=== PATIENT | male | born 1990 | race Two or more races ===

== ENCOUNTER 2017-02-16 16:45 | Inpatient (IN) | payer OTHER ==
[~2017-02-16] VITALS: Ht 162.6 cm; Wt 85.3 kg
--- NOTE | 2017-02-16 16:47 | NUR ---
NEREYDA AYERS FOR SEIZURE AURA, UNABLE TO TAKE HIS SZ MED TODAY. PT IS DIZZY, NAUSEOUS. PT STS HE TAKES KEPPRA 1500 BID. PT IS ALSO COMPLAINING OF CHEST PAIN X 1 HR. NAD VSS RR EVEN AND UNLABORED. SKIN IS WARM AND NON DIAPHORETIC. PENDING ER MD EVALUATION
[2017-02-16] MEDS ORDERED: LEVETIRACETAM (250 MG) 250 MG TABLET PO ONE ×2 (16:58→17:00)
--- NOTE | 2017-02-16 17:00 | NUR ---
EKG IN PROGRESS AT BEDSIDE
--- NOTE | 2017-02-16 18:33 | NUR ---
TRANSFERRED TO ED BED 05
--- NOTE | 2017-02-16 18:37 | NUR ---
PT TO CT SCAN
[2017-02-16 18:43] LABS: BASOPHILS # (AUTO) 0.1 /CMM (0.0-0.2); BASOPHILS % (AUTO) 1.4 % (0.0-2.0); EOSINOPHILS # (AUTO) 0.1 /CMM (0.0-0.7); EOSINOPHILS % (AUTO) 0.7 % (0.0-6.0); HEMATOCRIT 52 % (39-51); HEMOGLOBIN 18.1 g/dL (13.5-17.5); LYMPHOCYTES # (AUTO) 2.5 /CMM (0.8-4.8); LYMPHOCYTES % (AUTO) 23.9 % (20.0-44.0); MEAN CORPUSCULAR HEMOGLOBIN 30 PG (26.0-33.0); MEAN CORPUSCULAR HGB CONC 35 g/dl (31.0-36.0); MEAN CORPUSCULAR VOLUME 86 fL (80-96); MONOCYTES # (AUTO) 0.6 /CMM (0.1-1.30); MONOCYTES % (AUTO) 6.2 % (2.0-12.0); NEUTROPHILS # (AUTO) 7.1 /CMM (1.8-8.9); NEUTROPHILS % (AUTO) 67.8 % (43.0-81.0); PLATELET COUNT (AUTO) 344 /CMM (150-450); RDW COEFFICIENT OF VARIATION 12.1 (11.5-15.0); RED BLOOD CELL COUNT(AUTO) 6.13 MIL/uL (4.5-6.0); WHITE BLOOD COUNT (AUTO) 10.4 K/uL (4.3-11.0)
[2017-02-16 18:52] LABS: CALCIUM, SERUM 9.9 mg/dL (8.5-10.1); CREATININE 0.9 mg/dL (0.6-1.3)
--- NOTE | 2017-02-16 18:54 | NUR ---
PT BACK FROM CT SCAN
[2017-02-16 18:55] LABS: INR 0.93 (0.87-1.13); PROTHROMBIN TIME 9.7 SECS (9.5-12.7)
--- NOTE | 2017-02-16 18:55 | NUR ---
TELE STROKE MD WITH PATIENT AT THIS TIME VIA STROKE ROBOT
[2017-02-16 19:03] LABS: TROPONIN I 0.025 ng/mL (0.00-0.056)
[2017-02-16 19:06] LABS: ACETAMINOPHEN < 10 ug/ml (10-30); ALCOHOL, BLOOD < 3 mg/dL (0-0); SALICYLATE < 2.8 mg/dL (2.8-20.0)
[2017-02-16] MEDS ORDERED: LEVE500T9 PO (19:20)
[2017-02-16] MEDS ORDERED: IOHEXOL-350 100 ML VIAL IV ONE (19:37)
[2017-02-16] MEDS ORDERED: IV NS 0.9% 250 ML IV ONE (19:37)
[2017-02-16] MEDS ORDERED: ACETAMINOPHEN 325 MG TABLET ONE (19:54)
--- NOTE | 2017-02-16 19:57 | NUR ---
PT TO CTA SCAN IN CUSTODY
[2017-02-16 20:00] VITALS: BP 111/70
[2017-02-16] MEDS ORDERED: ACETAMINOPHEN 325 MG TABLET PO ONE (20:00)
--- NOTE | 2017-02-16 20:58 | NUR ---
GAVE REPORT TO ALEXANDREA IN [facility]
[2017-02-16 21:15] VITALS: BP 117/70
--- NOTE | 2017-02-16 22:00 | NUR ---
LOC[facility] TENENS PSYCHIATRIST NOTES PT ADMITTED TO TELE UNIT AT 2109 PT ARRIVED VIA GURNEY FROM E.R ACCOMPANIED BY ARMEN Johnson, PT AMBULATORY. PATIENT IS A/O X 4, NO NAUSEA NO VOMITING, NO COMPLAINS OF CHEST PAIN. APPEARS STABLE CONDITION, NO S/S OF DISTRESS. SAFETY MEASURES ARE IN PLACE, CALL LIGHT IS IN REACH. WILL CONTINUE TO MONITOR. TOLERATING ROOM AIR 98%, PT REFUSING TO REMOVE HIS PANTS AND REFUSE TO TAKE PICTURES OF HIS SKIN IF EVER HE HAS WOUNDS DESPITE RISKS AND BENEFITS MADE AWARE PER PT HE DOESNT HAVE WOUNDS.
[2017-02-16] MEDS ORDERED: ACETAMINOPHEN 325 MG TABLET PO PRN (23:00)
[2017-02-16] MEDS ORDERED: ONDANSETRON HCL/PF 4 MG/2 ML VIAL IVP PRN (23:00)
[2017-02-16] MEDS ORDERED: LORAZEPAM INJ 2 MG/ML VIAL IVP PRN (23:00)
--- NOTE | 2017-02-16 23:14 | NUR ---
PAGED DR. TYRELL AGUILAR SPOKE TO HER FOR CLARIFICATION OF ORDERS OF ACCUCHECK ACHS ONLY NOT EVERY 6 HOURS RELAYED PT COMPLAINS OF PAIN 8-10 DR. TYRELL Mcdaniel ORDERED MORPHINE 2 MG IV Q6 PRN NOTED AND CARRIED OUT ALL ORDERS VERIFIED AND READ BACK.
[2017-02-16] MEDS ORDERED: MORPHINE SULFATE INJ 4 MG/ML DISP.SYRIN ONE (23:23)
[2017-02-16] MEDS: MORPHINE SULFATE INJ 2 MG/ML DISP.SYRIN IV PRN (23:31)
[2017-02-17] VITALS: BP 115/70
[2017-02-17] MEDS ORDERED: BLOOD SUGAR DIAGNOSTIC 1 EACH STRIP IN SCH
[2017-02-17 01:30] LABS: THYROID STIMULATING HORMONE 6.504 uIU/mL (0.358-3.74)
[2017-02-17] MEDS: IV NS 0.9% 1,000 ML IV PRN ×2 (02:51→21:29)
[2017-02-17 04:00] VITALS: BP 101/58
[2017-02-17] MEDS ORDERED: MORPHINE SULFATE INJ 4 MG/ML DISP.SYRIN ONE (05:27)
[2017-02-17] MEDS: MORPHINE SULFATE INJ 2 MG/ML DISP.SYRIN IV PRN (05:39)
[2017-02-17] MEDS: BLOOD SUGAR DIAGNOSTIC 1 EACH STRIP IN SCH ×4 (06:15→21:01)
--- NOTE | 2017-02-17 06:42 | NUR ---
MS RN CLOSING NOTES ASLEEP AND EASILY AWAKEN, 2 MANAGER OF SELECTION AND ASSESSMENT AT BEDSIDE, PT ON CUSTODY. PT IN STABLE CONDITION. PT NOT IN PAIN AT THIS TIME. KEPT CLEAN AND DRY AND COMFORTABLE, ALL NURSING CARE RENDERED. NEEDS ATTENDED AND ANTICIPATED, FREQUENT VISUAL CHECK DONE FOR SAFETY EVERY 2 HOURS. ON LOW BED AT ALL TIMES TO ENSURE SAFETY. SAFE HAZARD FREE ENVIRONMENT PROVIDED. CALL LIGHT WITHIN EASY TO REACH. WILL ENDORSE NEXT SHIFT CONTINUITY OF CARE.
--- NOTE | 2017-02-17 07:30 | NUR ---
RN MS NOTES PT IN BED, AWAKE, ALERT AND ORIENTED, STILL WITH COMPLAINT OF PAIN AT THE HEAD AND RIGHT SIDE OF CHEST, PAIN MEDICATION GIVEN FOR PAIN MANAGEMENT, CALL LIGHT WITHIN REACH, PLAN OF CARE DISCUSSED WITH PT, VERBALIZED UNDERSTANDING, NEEDS ATTENDED.
[2017-02-17 07:41] LABS: BASOPHILS % (AUTO) 0.8 % (0.0-2.0); EOSINOPHILS # (AUTO) 0.2 /CMM (0.0-0.7); EOSINOPHILS % (AUTO) 4.2 % (0.0-6.0); HEMATOCRIT 45 % (39-51); HEMOGLOBIN 15.7 g/dL (13.5-17.5); LYMPHOCYTES # (AUTO) 2.3 /CMM (0.8-4.8); LYMPHOCYTES % (AUTO) 38.8 % (20.0-44.0); MEAN CORPUSCULAR HEMOGLOBIN 30 PG (26.0-33.0); MEAN CORPUSCULAR HGB CONC 35 g/dl (31.0-36.0); MEAN CORPUSCULAR VOLUME 87 fL (80-96); MONOCYTES # (AUTO) 0.6 /CMM (0.1-1.30); MONOCYTES % (AUTO) 10.7 % (2.0-12.0); NEUTROPHILS # (AUTO) 2.7 /CMM (1.8-8.9); NEUTROPHILS % (AUTO) 45.5 % (43.0-81.0); PLATELET COUNT (AUTO) 286 /CMM (150-450); RDW COEFFICIENT OF VARIATION 12.8 (11.5-15.0)
[2017-02-17 08:00] VITALS: BP 110/67
[2017-02-17 08:05] LABS: INR 0.97 (0.87-1.13); PROTHROMBIN TIME 10.1 SECS (9.5-12.7)
[2017-02-17 08:13] LABS: ALBUMIN 3.7 g/dL (3.4-5.0); BILIRUBIN,DIRECT 0.2 mg/dL (0.0-0.2); BILIRUBIN,TOTAL 0.9 mg/dL (0.2-1.0); CALCIUM, SERUM 8.7 mg/dL (8.5-10.1); CREATININE 0.9 mg/dL (0.6-1.3); MAGNESIUM 2.1 mg/dL (1.8-2.4); PHOSPHORUS 4.9 mg/dL (2.5-4.9); POTASSIUM 4.2 mmol/L (3.5-5.1); TOTAL PROTEIN, SERUM 7.2 g/dL (6.4-8.2)
[2017-02-17] MEDS: ASPIRIN EC 325 MG TABLET.DR PO SCH (08:30)
[2017-02-17] MEDS: PANTOPRAZOLE 40 MG TABLET.DR PO SCH (08:30)
[2017-02-17] MEDS: LEVETIRACETAM (250 MG) 250 MG TABLET PO SCH ×2 (08:31→20:32)
[2017-02-17] MEDS ORDERED: PANTOPRAZOLE 40 MG TABLET.DR PO SCH (09:00)
[2017-02-17] MEDS: MORPHINE SULFATE INJ 4 MG/ML DISP.SYRIN IV PRN ×2 (12:29→23:44)
[2017-02-17] MEDS: HYDROCODONE/APAP 5/325MG 1 EACH TABLET PO PRN ×2 (15:26→20:32)
--- NOTE | 2017-02-17 18:30 | NUR ---
RN MS NOTES PT IN BED, RESTING, PAIN MEDICATION GIVEN FOR PAIN MANAGEMENT ORDERED, PT SEEN BY LOLA EDEN, SEEN BY PHYSICAL THERAPY, PT ON POLICE CUSTODY, PT SEEN BY DR. ALVES, PM MEDS GIVEN, ALL NEEDS ATTENDED.
[2017-02-17 20:00] VITALS: BP 118/62
--- NOTE | 2017-02-17 20:00 | NUR ---
RECEIVED PATIENT IN BED, PATIENT IS IN CUSTODY AND HANDI CUFFED TO THE BED SIDE RAIL. TWO POLICE OFFICERS ( METER RECORD CLERK ) AT HIS BED SIDE. PATIENT IS AAO, VSS AFEBRILE NO DISTRESS NOTED BUT CONSTANTLY C/O GENERALIZED CHEST PAIN AND ASKES FOR THE PAIN MEDICATIONS GIVEN TO HIM AROUND THE CLOCK EVEN IF HE IS ASLEEP PATIENT WAS EXPLAINED THAT HE WILL RECEIVE HIS PAIN MEDICATIONS ONLY UPON HIS REQUEST AND IT IS ORDERS. CONTINUE TO MONITOR
[2017-02-17] MEDS ORDERED: SIMVASTATIN 20 MG TABLET PO SCH (22:00)
[2017-02-18] MEDS: HYDROCODONE/APAP 5/325MG 1 EACH TABLET PO PRN ×3 (02:01→15:04)
[2017-02-18] MEDS: MORPHINE SULFATE INJ 4 MG/ML DISP.SYRIN IV PRN ×3 (06:05→18:22)
[2017-02-18] MEDS: BLOOD SUGAR DIAGNOSTIC 1 EACH STRIP IN SCH ×3 (06:43→17:49)
--- NOTE | 2017-02-18 07:31 | NUR ---
MS RN OPENING NOTES RECEIVED PATIENT AWAKE IN BED IN NO ACUTE SIGNS OF DISTRESS. A/O X 4 AND VERBALLY RESPONSIVE WITH NO C/O PAIN OR DISCOMFORTS AT THIS TIME. PT IS IN CUSTODY AND HANDCUFFED TO THE BED SIDE-RAIL WITH 2 POLICE NUTRITION SERVICES ASSOCIATE AT BEDSIDE. ON ROOM AIR, BREATHING EVEN AND UNLABORED. IV ACCESS ON RIGHT AC INTACT AND PATENT, IVF OF NS @ 80ML/HR INFUSING WELL, NO SIGNS OF INFILTRATION NOTED. BED ON LOW AND LOCKED POSITION. CALL LIGHT WITHIN EASY TO REACH. WILL CONTINUE TO MONITOR ACCORDINGLY..
[2017-02-18 08:00] VITALS: BP 108/58
[2017-02-18 08:09] LABS: HOMOCYSTEINE, PLASMA 8.6 umol/L (0.0-15.0)
[2017-02-18] MEDS: PANTOPRAZOLE 40 MG TABLET.DR PO SCH (08:19)
[2017-02-18] MEDS: LEVETIRACETAM (250 MG) 250 MG TABLET PO SCH (08:19)
[2017-02-18] MEDS: ASPIRIN EC 325 MG TABLET.DR PO SCH (08:19)
[2017-02-18] MEDS ORDERED: IOHEXOL-300 100 ML VIAL IV ONE (11:32)
[2017-02-18] MEDS ORDERED: CT SWABBABLE VALVE TRANS SET 1 EA INFUS.SET MC ONE (11:32)
[2017-02-18] MEDS ORDERED: IV NS 0.9% 250 ML IV ONE (11:33)
[2017-02-18 13:33] LABS: BASOPHILS % (AUTO) 0.5 % (0.0-2.0); EOSINOPHILS # (AUTO) 0.2 /CMM (0.0-0.7); EOSINOPHILS % (AUTO) 3.1 % (0.0-6.0); HEMATOCRIT 46 % (39-51); HEMOGLOBIN 15.7 g/dL (13.5-17.5); LYMPHOCYTES # (AUTO) 1.8 /CMM (0.8-4.8); LYMPHOCYTES % (AUTO) 27.6 % (20.0-44.0); MEAN CORPUSCULAR HEMOGLOBIN 30 PG (26.0-33.0); MEAN CORPUSCULAR HGB CONC 34 g/dl (31.0-36.0); MEAN CORPUSCULAR VOLUME 88 fL (80-96); MONOCYTES # (AUTO) 0.4 /CMM (0.1-1.30); MONOCYTES % (AUTO) 5.7 % (2.0-12.0); NEUTROPHILS # (AUTO) 4.2 /CMM (1.8-8.9); NEUTROPHILS % (AUTO) 63.1 % (43.0-81.0); PLATELET COUNT (AUTO) 268 /CMM (150-450); RDW COEFFICIENT OF VARIATION 12.4 (11.5-15.0); RED BLOOD CELL COUNT(AUTO) 5.22 MIL/uL (4.5-6.0); WHITE BLOOD COUNT (AUTO) 6.6 K/uL (4.3-11.0)
[2017-02-18 13:36] LABS: CALCIUM, SERUM 8.5 mg/dL (8.5-10.1); CREATININE 0.8 mg/dL (0.6-1.3); POTASSIUM 3.8 mmol/L (3.5-5.1)
[2017-02-18] MEDS ORDERED: SIMV20TA6 PO (15:56)
[2017-02-18 16:12] VITALS: BP 99/69
--- NOTE | 2017-02-18 18:33 | NUR ---
RN DISCHARGED NOTES PATIENT DISCHARGED TO [facility] IN STABLE CONDITION. A/O X4, SAME VERBALLY RESPONSIVE, NO SIGNS OF DISTRESS NOTED DURING DISCHARGE. PT LEFT UNIT @ 1830 ON HANDCUFF VIA WHEELCHAIR ACCOMPANIED BY 2 COUNTY PROGRAM TECHNICIAN FROM [employer]. V/S TAKEN AND RECORDED. PT HAS NO BELONGINGS WHEN ADMITTED. SKIN IS INTACT. PER MEEK YATES, PT NOT TO TAKE ASPIRIN UNTIL URINE IS CLEAR FROM BLOOD AND PT IS AWARE. PNA AND FLU VACCINES REFUSED BY PT. HEALTH TEACHINGS GIVEN TO PT AND VERBALIZED UNDERSTANDING. CHARGE NURSE AWARE OF DISCHARGE.
[2017-02-19 11:12] LABS: *ANTITHROMBIN III AG 99 % (72-124); *DILUTE PROTHROMBIN TIME (dPT) 48.9 sec (0.0-55.0); *PTT-LA 44.6 sec (0.0-51.9); *THROMBIN TIME 26.1 sec (0.0-23.0); *dPT CONFIRM RATIO 1.21 Ratio (0.00-1.40); *dRVVT 45.7 sec (0.0-47.0); FACTOR VIII ACTIVITY 77 % (57-163); PROTEIN C ACTIVITY 132 % (73-180); PROTEIN S ACTIVITY 94 % (63-140)
[2017-02-19 12:13] LABS: *INTERPRETATION Comment: (.)
[2017-02-19 14:15] LABS: *CARD ANTI-CARDIOLIPIN AB IgG <9 GPL U/mL (0-14); *CARD ANTI-CARDIOLIPIN AB IgM <9 MPL U/mL (0-12)
[2017-02-22 17:09] LABS: *FACTOR II, DNA ANALYSIS Negative (.)
== END 2017-02-18 18:30 | DRG 93 ==
LOC: ER 16:46 → TELE 20:48 → MED 02-17 09:09
PROVIDERS: ADMIT Internal Medicine; ATTEND Internal Medicine
DX: G83.84 Todd's paralysis (postepileptic) (principal); E66.9 Obesity, unspecified; G40.909 Epilepsy, unspecified, not intractable, without status epilepticus; E78.5 Hyperlipidemia, unspecified; R71.8 Other abnormality of red blood cells; Z76.5 Malingerer [conscious simulation]; R31.9 Hematuria, unspecified
CPT/HCPCS: 36415; 70450-TC; 70496-TC; 70498-TC; 70551-TC; 71045-TC; 74178; 80048-TC; 80053-TC; 80061-TC; 80076-TC; 81240; 82962-TC; 83090; 83735-TC; 83880; 84100-TC; 84443-TC; 84484-TC; 85025-TC; 85240; 85300; 85301; 85303; 85385-TC; 85613; 85652-TC; 85670; 85705; 85730-TC; 85732; 86147; 87081-TC; 92611-TC; 93307-TC; 93880-TC; 95819-TC; 97112-TC; A4606; G0480; J2270; J7030; J7050; Q9967; Z7610